=== PATIENT | female | born 1975 | race Caucasian/White ===

== ENCOUNTER 2023-02-22 20:07 | Emergency (ER) | payer OTHER, SELFPAY ==
--- NOTE | 2023-02-22 20:50 | CRLHL7_ITS ---
For Patients: As a result of the Century Cures Act, medical imaging exams and procedure reports are released immediately into your electronic medical record. You may view this report before your referring provider. If you have questions, please contact your health care provider. INDICATION: Left leg tenderness and redness. History of right leg deep venous thrombosis 2012 TECHNIQUE: Ultrasound venous duplex right lower extremity. Real-time aldana-scale (B mode 2D), color Doppler, and spectral Doppler imaging were performed with compression and augmentation. COMPARISON: None FINDINGS: Deep veins: Nonocclusive thrombus is seen within the common femoral, femoral, and the calf vessels. Superficial veins: Thrombosis of the greater saphenous vein is noted. Soft tissue: No masses or cysts are identified. No adenopathy is seen. IMPRESSIONS: 1. Nonocclusive thrombus is seen within the common femoral, femoral, and the calf vessels. 2. Thrombosis of the greater saphenous vein is noted. The findings were discussed with Dr. Mayo at 10:56 PM. Dictated by Didier Marie MD @ 02/22/2023 10:51:20 PM Dictated by: Didier Marie MD @ 02/22/2023 22:58:30 (Electronically Signed)
[2023-02-22 20:53] VITALS: BP 158/82; PULSE 87; RESP 18; TEMP 36.7; O2SAT 99; BMI 32.8
--- NOTE | 2023-02-22 21:00 | ED.GENADULT ---
HPI - General Adult General Time Seen by Provider: 21:01 Date Seen: 02/22/23 Chief complaint: Lower Extremity Swelling Stated complaint: Blood clot Time Seen by Provider: 02/22/23 20:51 Source: patient, RN notes reviewed and old records reviewed Mode of arrival: ambulatory Limitations: no limitations History of Present Illness HPI narrative: 47-year-old female with distant history of DVT in 2012 which it sounds like was unprovoked, accompanied by pulmonary embolism, presents with pain in the left leg. She was seen at an outside facility for this a couple days ago and thought to have superficial thrombophlebitis, no ultrasound was done and patient was started on aspirin. Returned to that facility today with increased redness and pain radiating up the medial thigh, no ultrasound available at that facility and so patient was directed here for ultrasound. She denies fever chills. No chest pain or shortness of breath. No nausea, vomiting, diarrhea. Denies recent travel or trauma to the leg. Related Data Home Medications Medication Instructions Recorded Confirmed fluoxetine 40 mg capsule 40 mg PO DAILY 02/22/23 02/22/23 gabapentin 300 mg capsule 600 mg PO BID 02/22/23 02/22/23 metformin 500 mg tablet 500 mg PO BID 02/22/23 02/22/23 ropinirole 2 mg tablet 2 mg PO DAILY 02/22/23 02/22/23 topiramate 100 mg tablet 200 mg PO BID 02/22/23 02/22/23 Previous Rx's Medication Instructions Recorded rivaroxaban 15 mg (42)-20 mg (9) See Rx Instructions PO .COMPLEX 02/22/23 tablets in a starter pack (Xarelto #51 ea DVT-PE Treatment 30-Day Starter) Allergies Allergy/AdvReac Type Severity Reaction Status Date / Time No Known Drug Allergies Allergy Verified 02/22/23 20:58 Exam Narrative: Exam Narrative: General: well nourished , NAD Head: Atraumatic and normocephalic ENT: External ears and external nose are normal Eyes: Conjunctiva clear, pupils are equal reactive, external ocular motions are intact Neck: Full spontaneous range of motion of the neck Lungs: No respiratory distress Musculoskeletal: Tender warm erythematous area of the anterior medial proximal lower leg with tracking erythema and tenderness of the medial thigh to the groin. No inguinal adenopathy, no warmth in this area. Neurologic: No gross focal neurologic deficits Skin: No rashes Psych: Mood and affect are appropriate Const: Vital Signs, click to edit/add: Vital Signs - 24 hr 02/22/23 20:53 Temperature 98.0 F Pulse Rate [Right Pulse Oximeter] 87 Respiratory Rate 18 Blood Pressure [Ri ght Upper Arm] 158/82 H Pulse Oximetry 99 Oxygen Delivery Me thod Room Air Course Course Hospital Course: Patient seen and examined, prior records reviewed. Patient presents today with concern for DVT verses propagating SVT from outside facility. Patient has erythematous tracking from what does appear to be a superficial thrombophlebitis moving proximally. This could be from thrombus but alternatively would consider lymphangitis. Ultrasound is ordered, if this is positive for DVT or large SVT, would initiate NOAC as patient failed aspirin therapy. If negative, patient will be started on antibiotics Reevaluation(s) Time of Reevaluation #1: 22:37 Reevaluation #1: Ultrasound independently interpreted by me demonstrates DVT in the common femoral pain as well as superficial phlebitis. Radiology interpretation is pending, plan to initiate oral anticoagulation outpatient follow-up. Patient has no chest pain, shortness of breath, hypoxia, tachycardia to suggest significant pulmonary embolism. Time of Reevaluation #2: 22:56 Reevaluation #2: Care discussed with Dr. Marie, radiologist-nonocclusive DVT in the common femoral in saphenous veins. Patient is stable for discharge on Xarelto, 1st dose given in the emergency department. Vital Signs Vital signs: Initial Vital Signs Temperature 98.0 F 02/22/23 20:53 Temperature Source Temporal Artery Scan 02/22/23 20:53 Pulse Rate 87 02/22/23 20:53 Respiratory Rate 18 02/22/23 20:53 Blood Pressure 158/82 H 02/22/23 20:53 Blood Pressure Mean 107 H 02/22/23 20:53 Blood Pressure Position Sitting 02/22/23 20:53 Pulse Oximetry 99 02/22/23 20:53 Oxygen Delivery Method Room Air 02/22/23 20:53 Vital Signs Temperature 98.0 F 02/22/23 20:53 Pulse Rate 87 02/22/23 20:53 Respiratory Rate 18 02/22/23 20:53 Blood Pressure 158/82 H 02/22/23 20:53 Pulse Oximetry 99 02/22/23 20:53 Oxygen Delivery Method Room Air 02/22/23 20:53 Temperature 98.0 F 02/22/23 20:53 Pulse Rate 87 02/22/23 20:53 Respiratory Rate 18 02/22/23 20:53 Blood Pressure 158/82 H 02/22/23 20:53 Pulse Oximetry 99 02/22/23 20:53 Oxygen Delivery Method Room Air 02/22/23 20:53 Discharge Plan Discharge Clinical Impression: DVT of deep femoral vein Patient Disposition: Home, Self-Care Condition: Stable Instructions: Deep Vein Thrombosis (DC) Additional Instructions: Start Xarelto as prescribed, follow-up with primary care in 1 week Prescriptions: New Xarelto DVT-PE Treat 30d Start 15 mg (42)- 20 mg (9) tablets,dose pack See Rx Instructions .ROUTE .COMPLEX Qty: 51 0RF Rx Instructions: take one-15 mg tablet twice daily for 21 days, then one-20 mg tablet once daily; must take with meal/food No Action fluoxetine 40 mg capsule 40 mg PO DAILY metformin 500 mg tablet 500 mg PO BID ropinirole 2 mg tablet 2 mg PO DAILY gabapentin 300 mg capsule 600 mg PO BID topiramate 100 mg tablet 200 mg PO BID Stand Alone Forms: MyHealth Info Instructions
[2023-02-22 23:15] VITALS: BP 158/82; PULSE 87; RESP 18; TEMP 36.7
[2023-02-22] MEDS: RIVAROXABAN 10 MG TABLET 15 MG PO (23:23)
[2023-02-22 23:30] VITALS: BP 132/74; PULSE 79; RESP 18; TEMP 36.7; O2SAT 99
== END 2023-02-22 23:30 | disposition home or self-care (01) ==
PROVIDERS: Emergency Provider Family Medicine; PCP Family Medicine
DX: I82.412 Acute embolism and thrombosis of left femoral vein (principal)
CPT/HCPCS: 93971; 99284; A9270

== ENCOUNTER 2024-01-11 09:11 | Outpatient (CLI) | payer OTHER, SELFPAY | END 2024-01-11 09:12 | disposition home or self-care (01) | PROVIDERS: PCP Family Medicine; Visit Provider Family Medicine | DX: M54.16 Radiculopathy, lumbar region (principal); M51.36 Other intervertebral disc degeneration, lumbar region | CPT/HCPCS: 62323; 64483; J1100; Q9966 ==